=== PATIENT | female | born 1940 | race Caucasian/White ===

== ENCOUNTER 2017-11-17 14:31 | Emergency (ER) | payer MEDICARE, MEDICAID ==
[~2017-11-17] VITALS: Ht 165.1 cm; Wt 70.8 kg
--- NOTE | 2017-11-17 14:55 | NUR ---
PATIENT TO ED DT HEADACHE X 2 WEEKS. PATIENT IS AWAKE AND ALERT.VSS
[2017-11-17] MEDS ORDERED: MECLIZINE HCL 25 MG TABLET ONE ×2 (15:24→15:27)
[2017-11-17] MEDS ORDERED: MECLIZINE HCL 12.5 MG TABLET PO ONE (15:30)
[2017-11-17 15:57] LABS: CALCIUM, SERUM 9.1 mg/dL (8.5-10.1); CARBON DIOXIDE 26 mmol/L (21-32); CHLORIDE 104 mmol/L (98-107); CREATININE 1.1 mg/dL (0.6-1.3); GLUCOSE 100 mg/dL (74-106); POTASSIUM 4.5 mmol/L (3.5-5.1); SODIUM SERUM 136 mmol/L (136-145); UREA NITROGEN, BLOOD 20 mg/dL (7-18)
--- NOTE | 2017-11-17 15:58 | NUR ---
PT IS BACK FROM CT
[2017-11-17 16:01] LABS: INR 0.95 (0.85-1.15)
[2017-11-17 16:04] LABS: BASOPHILS # (AUTO) 0.6 /CMM (0.0-0.2); BASOPHILS % (AUTO) 0.6 % (0.0-2.0); EOSINOPHILS % (AUTO) 0.1 % (0.0-6.0); HEMATOCRIT 37 % (33-45); HEMOGLOBIN 11.9 g/dL (11.5-14.8); LYMPHOCYTES # (AUTO) 84.6 /CMM (0.8-4.8); LYMPHOCYTES % (AUTO) 86.7 % (20.0-44.0); MEAN CORPUSCULAR HGB CONC 32 g/dl (31.0-36.0); MEAN CORPUSCULAR VOLUME 97 fL (82-100); MONOCYTES # (AUTO) 6.5 /CMM (0.1-1.30); MONOCYTES % (AUTO) 6.6 % (2.0-12.0); NEUTROPHILS # (AUTO) 5.9 /CMM (1.8-8.9); PLATELET COUNT (AUTO) 184 /CMM (150-450); RDW COEFFICIENT OF VARIATION 16.3 (11.5-15.0); RED BLOOD CELL COUNT(AUTO) 3.85 MIL/uL (4.0-5.2)
[2017-11-17 16:34] LABS: WHITE BLOOD COUNT (AUTO) 97.6 K/uL (4.3-11.0)
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
[2017-11-17 17:31] VITALS: BP 124/80
--- NOTE | 2017-11-17 17:31 | NUR ---
Patient does not wish to proceed with medical care recommended by . Patient given information related to possible complications, up to and including , which could OCcur as a result of leaving the hospital at this time. Patient verbalizes understanding of risks involved due to leaving against medical advice. Patient has signed AMA form.
[2017-11-17 17:40] LABS: EOSINOPHILS % (MANUAL) 2 % (0-4); LYMPHOCYTES % (MANUAL) 78 % (16-48); MONOCYTES % (MANUAL) 4 % (0-11.0); NEUTROPHILS % (MANUAL) 16 (42-76)
== END 2017-11-17 17:33 | disposition left against medical advice (07) ==
LOC: ER 14:36
DX: R42 Dizziness and giddiness (principal); D72.829 Elevated white blood cell count, unspecified; I10 Essential (primary) hypertension; K21.9 Gastro-esophageal reflux disease without esophagitis; M19.90 Unspecified osteoarthritis, unspecified site; Z88.5 Allergy status to narcotic agent; Z88.6 Allergy status to analgesic agent; Z85.6 Personal history of leukemia; Z53.20 Procedure and treatment not carried out because of patient's decision for unspecified reasons
CPT/HCPCS: 36415; 70450-TC; 80048-TC; 85025-TC; 85730-TC; A4606; J8597; Z7610